=== PATIENT | male | born 1995 | race Caucasian/White ===

== ENCOUNTER 2017-10-15 13:24 | Observation (INO) ==
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
[2017-10-15 14:22] LABS: ABG Base Excess 0.4 mmol/L (-2-2); ABG PCO2 38 mmHg (38-42); ABG PO2 79 mmHg (61-120)
--- NOTE | 2017-10-15 15:06 | XR ---
EXAM DATE: 10/15/2017 2:37 PM EDT AGE/SEX: 22 years / Male INDICATIONS: Short of breath. CLINICAL DATA: This is the patient's initial encounter. Patient reports that signs and symptoms have been present for 1 day and indicates a pain score of 2/10. MEDICAL/SURGICAL HISTORY: . Downs syndrome None. COMPARISON: No prior exams available for comparison. FINDINGS: A single AP view of the chest demonstrates the lungs to be symmetrically aerated without evidence of mass, infiltrate or effusion. The cardiomediastinal contours are unremarkable. Osseous structures a re intact. CONCLUSION: No evidence of acute cardiopulmonary process. Electronically signed by: Moreno Garza MD 10/15/2017 3:05 PM EDT
[2017-10-15] MEDS ORDERED: Senna/Docusate Sodium 8.6/50 MG Tablet PO PRN (16:20)
[2017-10-15] MEDS ORDERED: Bisacodyl 10 MG Supp RECTAL PRN (16:20)
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
[2017-10-15 16:57] LABS: Hemoglobin 14.3 gm/dL (13.0-17.0); Mean Corpuscular HGB Conc 35.8 % (32.0-36.0); Mean Corpuscular Volume 95.1 fL (80.0-100.0); Mean Platelet Volume 8.4 fL (7.0-11.0); Platelet Count 341 th/mm3 (150-450); Red Blood Count 4.21 mil/mm3 (4.50-5.90); Red Cell Distribution Width 13.2 % (11.6-17.2); White Blood Count 11.6 th/mm3 (4.0-11.0)
[2017-10-15 17:11] LABS: Alanine Aminotransferase 46 U/L (12-78); Albumin 3.5 g/dL (3.4-5.0); Anion Gap 10 meq/L (5-15); Aspartate Aminotransferase 21 U/L (15-37); Blood Urea Nitrogen 11 mg/dL (7-18); Calcium 8.7 mg/dL (8.5-10.1); Carbon Dioxide 23.9 meq/L (21.0-32.0); Chloride 110 meq/L (98-107); Glomerular Filtration Rate Greater Than 89 mL/min (>89); Glucose,Random 71 mg/dL (74-106); Potassium 3.8 meq/L (3.5-5.1); Sodium 144 meq/L (136-145)
[2017-10-15 17:14] LABS: Alkaline Phosphatase 131 U/L (45-117); Total Protein 8.1 g/dL (6.4-8.2)
== END 2017-10-15 17:17 | disposition left against medical advice (07) ==
LOC: NEDA 13:24 → NEPD 13:24 → NEDA 17:16
PROVIDERS: ADMIT Family Medicine; ATTEND Family Medicine